=== PATIENT | female | born 1975 | race Caucasian/White ===

== ENCOUNTER → 2022-04-02 16:02 | Outpatient (BNVA) | payer BC, SELFPAY | PROVIDERS: Family Provider Nurse Practitioner; Visit Provider Family Medicine | DX: Z76.89 Persons encountering health services in other specified circumstances (principal); I10 Essential (primary) hypertension | CPT/HCPCS: 80053; 80061; 84439; 84443; 85025 ==

== ENCOUNTER 2022-04-22 08:56 | Outpatient (CLI) | payer BC, SELFPAY ==
[2022-04-22 10:36] LABS: Cortisol Random 8.26 ug/dL (2.47-19.5)
[2022-04-23 12:02] LABS: Total Volume, Urine 1600 mL
[2022-04-23 12:20] LABS: Sodium, Urine Result 107 mmol/L
[2022-04-23 12:28] LABS: Urine Total Protein 7.4 mg/dL (0-150); Urine Total Protein 24 Hour 118.4 mg/24hr (0-150)
[2022-04-29 16:32] LABS: Calculated Total (E+NE) 35 mcg/24 h (26-121)
== END 2022-04-22 08:57 | disposition home or self-care (01) ==
LOC: LAB 08:59
PROVIDERS: PCP Family Medicine; Visit Provider Family Medicine
DX: I10 Essential (primary) hypertension (principal)
CPT/HCPCS: 82088; 82533

== ENCOUNTER 2022-04-23 11:18 | Outpatient (CLI) | payer BC, SELFPAY | END 2022-04-23 11:19 | disposition home or self-care (01) | LOC: LAB 11:19 | PROVIDERS: PCP Family Medicine; Visit Provider Family Medicine | DX: I10 Essential (primary) hypertension (principal) | CPT/HCPCS: 82384; 82530; 84156; 84300 ==

== ENCOUNTER 2022-05-28 11:27 | Outpatient (CLI) | payer BC, SELFPAY ==
--- NOTE | 2022-05-28 12:00 | US_ITS ---
WS: [id number] RENAL ULTRASOUND HISTORY: Refractory hypertension COMPARISON: 2010 TECHNIQUE: 2-D and color Doppler imaging of the kidney submitted. Right kidney: 10.7 cm x 5.0 cm x 6.6 cm. Normal echogenicity with no hydronephrosis or mass. Left kidney: 8.5 cm x 5.9 cm x 5.5 cm. Normal echogenicity with no hydronephrosis or mass. LEFT kidney is measuring slightly smaller than th e RIGHT but may not be completely visualized due to adjacent bowel gas and retroperitoneal fat. Aorta: Normal. Urinary Bladder: Normal distention. Bilateral ureteral jets are identified. US/US renal BI* [id number] IMPRESSION: Normal renal ultrasound.
== END 2022-05-28 11:28 | disposition home or self-care (01) ==
PROVIDERS: PCP Family Medicine; Visit Provider Family Medicine
DX: I10 Essential (primary) hypertension (principal)
CPT/HCPCS: 76770